=== PATIENT | female | born 1960 | race African-American/Black ===

== ENCOUNTER → 2017-05-03 | Outpatient (CLI) | payer OTHER ==
[~2017-05-03] MED LIST: ALEVE220 MG PO; FLEXERIL PO; [UNRECOGNIZED DRUG - REMARK]
== END ==
LOC: RAD 09:22
DX: Z12.31 Encounter for screening mammogram for malignant neoplasm of breast (principal)

== ENCOUNTER → 2017-05-18 | Outpatient (CLI) | payer OTHER | LOC: ULTRA 05-16 02:10 | DX: N63.0 Unspecified lump in unspecified breast (principal) ==

== ENCOUNTER 2017-12-29 22:57 | Emergency (ER) | payer OTHER ==
[~2017-12-29] VITALS: Ht 165.1 cm; Wt 81.7 kg
[2017-12-29] MEDS ORDERED: [UNRECOGNIZED DRUG - REMARK] (23:07)
[2017-12-29] MEDS ORDERED: ALEVE220 MG PO (23:43)
[2017-12-29] MEDS ORDERED: FLEXERIL PO (23:43)
[2017-12-29 23:51] VITALS: BP 159/97
== END 2017-12-29 23:52 | disposition home or self-care (01) ==
LOC: ER 22:57
DX: M54.5 Low back pain (principal); M25.562 Pain in left knee; M25.561 Pain in right knee; K21.9 Gastro-esophageal reflux disease without esophagitis; V43.52XA Car driver injured in collision with other type car in traffic accident, initial encounter; Y93.89 Activity, other specified; Y92.89 Other specified places as the place of occurrence of the external cause; Y99.8 Other external cause status

== ENCOUNTER → 2018-01-04 | Outpatient (CLI) | payer OTHER | LOC: RAD 11:02 | DX: M47.814 Spondylosis without myelopathy or radiculopathy, thoracic region (principal); M17.0 Bilateral primary osteoarthritis of knee; M21.162 Varus deformity, not elsewhere classified, left knee ==

== ENCOUNTER → 2019-04-22 | Outpatient (CLI) | payer OTHER | LOC: RAD 08:17 | DX: Z12.31 Encounter for screening mammogram for malignant neoplasm of breast (principal) ==

== ENCOUNTER → 2021-05-12 | Outpatient (CLI) | payer OTHER | LOC: RAD 11:17 | PROVIDERS: ATTEND Family Medicine | DX: Z12.31 Encounter for screening mammogram for malignant neoplasm of breast (principal); N63.20 Unspecified lump in the left breast, unspecified quadrant ==